=== PATIENT | female | born 1935 | race Caucasian/White ===

== ENCOUNTER → 2016-11-02 | Outpatient (CLI) | payer MEDICARE ==
--- NOTE | 2016-11-02 11:02 | RAD ---
Abdomen radiograph History: Constipation for one week, nausea. Comparison: None. Findings: AP view of the abdomen. A few small bowel loops are mildly dilated up to 4 cm in diameter. Moderate colonic stool is seen. Gas is seen in the rectum. Calcifications in the pelvis are favored to be phleboliths. Degenerative changes are seen in the spine. Impression: A few mildly dilated small bowel loops are seen. The findings could represent ileus or partial small bowel obstruction.
== END | disposition home or self-care (01) ==
LOC: DXRADRC 10:11
PROVIDERS: ATTEND Nurse Practitioner Family
DX: K59.00 Constipation, unspecified (principal); R11.0 Nausea
CPT/HCPCS: 74000

== ENCOUNTER 2016-11-04 14:55 | Emergency (ER) | payer MEDICARE ==
[2016-11-04 15:31] LABS: BASO % 0 % (0-3); EOS % 0 % (0-3); HEMOGLOBIN 15.3 g/dL (12.0-15.5); LYMPH # 2.4 x10^3/uL (1.0-4.8); LYMPH % 21 % (24-48); MEAN CORPUSCULAR HEMOGLOBIN 29 pg (25-35); MEAN CORPUSCULAR HGB CONC 33 g/dL (31-37); MEAN CORPUSCULAR VOLUME 86 fL (79-100); MONO # 1.2 x10^3/uL (0.0-1.1); MONO % 10 % (0-9); NEUT # 8.1 x10^3uL (1.8-7.7); NEUT % 69 % (31-73); PLATELET COUNT 332 x10^3/uL (140-400); RED BLOOD COUNT 5.32 x10^6/uL (3.50-5.40); RED CELL DISTRIBUTION WIDTH 14.5 % (11.5-14.5); WHITE BLOOD COUNT 11.7 x10^3/uL (4.0-11.0)
[2016-11-04 15:43] LABS: ALBUMIN 3.6 g/dL (3.4-5.0); ALBUMIN/GLOBULIN RATIO 0.9 (1.0-1.7); CALCIUM 9.4 mg/dL (8.5-10.1); CREATININE 0.9 mg/dL (0.6-1.0); GFR 60.4; POTASSIUM 4.1 mmol/L (3.5-5.1); TOTAL BILIRUBIN 0.6 mg/dL (0.2-1.0); TOTAL PROTEIN 7.5 g/dL (6.4-8.2)
[2016-11-04] MEDS ORDERED: IV NORMAL SALINE 500ML 500 ML IV ONE (15:45)
[2016-11-04] MEDS ORDERED: FENTANYL PF 100 MCG/2 ML VIAL. IV ONE ×2 (16:15→17:45)
[2016-11-04 16:36] LABS: BILIRUBIN,URINE NEG (NEG); CLARITY,URINE CLOUDY; COLOR,URINE YELLOW; GLUCOSE,URINE NEG (NEG)
[2016-11-04 16:37] LABS: BACTERIA,URINE FEW /HPF (0-FEW); NITRITE,URINE NEG (NEG); SQUAMOUS EPITHELIAL CELL,UR MOD /LPF; UROBILINOGEN,URINE 1 mg/dL (0.2 mg/dL)
[2016-11-04] MEDS ORDERED: IOHEXOL 300 MG/ML 75 ML VIAL. IV ONE (17:00)
--- NOTE | 2016-11-04 17:09 | RAD ---
CT of the abdomen and pelvis with contrast, 11/04/2016: History: Abdominal pain, vomiting Multidetector CT imaging was performed following an IV bolus injection of iodinated contrast material.. No oral contrast material was administered for this study. The gallbladder is surgically absent. There is an 18 mm ill-defined low-density lesion in the anterior aspect of the left lobe of the liver. This does not have the appearance of a cyst. No other hepatic mass is seen. The common hepatic duct is mildly dilated, probably secondary the postcholecystectomy state. No common bile duct calculus or pancreatic head mass is seen. There is an ill-defined low density mass involving the pancreatic tail. It measures approximately 5 cm in diameter. It extends to the splenic hilum with adjacent heterogeneous areas of decreased density in the spleen. The mass cannot be from the lateral wall of the body of the stomach. This mass is also contiguous with an area of focal mural thickening involving the splenic flexure of the colon. The colon is distended with fluid proximal to this level. Distal to this level the descending colon is decompressed containing only a small amount of gas and stool. There are scattered diverticula in the distal colon. In addition to fluid distention of the right colon, there were also distended distal small bowel loops due to this obstructive process. Several small right renal cysts are noted. There is a nonobstructing calcification in the mid right kidney. The adrenal glands are unremarkable. There is moderate aortoiliac calcific plaquing. No retroperitoneal, iliac or inguinal adenopathy is seen. A Trinidad catheter is present in the urinary bladder. There is only a trace amount of free fluid in the abdomen. No free air is identified in the abdomen. IMPRESSION: 1. Left upper quadrant mass apparently originating in the pancreatic tail invading the spleen, stomach and splenic flexure of the colon, with associated colonic obstruction. A colonic or gastric origin is much less likely. 2. Single small irregular hepatic lesion raising the possibility of metastatic disease. PQRS Compliance Statement: One or more of the following individualized dose reduction techniques were utilized for this examination: 1. Automated exposure control 2. Adjustment of the mA and/or kV according to patient size 3. Use of iterative reconstruction technique
--- NOTE | 2016-11-04 17:35 | ED.ADGEN ---
Past History Past Medical History: Hypertension, Hypothyroid Past Surgical History: Appendectomy, Cholecystectomy, , Tonsillectomy , Tubal ligation, Other Alcohol Use: None Drug Use: None Adult General Chief Complaint Chief Complaint abdominal pain, vomiting HPI HPI Patient is a 81 year old female who presents with abdominal pain and vomiting. She's been having intermittent symptoms for 1 week. No blood in vomit, one episode of bilious vomiting. She's had intermittent bloating of her abdomen, it improved and then again distends. No vomiting, she had a normal BM earlier today, limited flatus. No h/o obstruction reported in the past. Prior abdominal surgeries were cholecystectomy, , tubal ligation and hysterectomy. No fevers, no SOB, no chest pain. She reports concentrated urine , no dysuria, decreased frequency. Hanna Carvajal is PCP Review of Systems Review of Systems Constitutional: Denies fever or chills [] Eyes: Denies change in visual acuity, redness, or eye pain [] HENT: Denies nasal congestion or sore throat [] Respiratory: Denies cough or shortness of breath [] Cardiovascular: No additional information not addressed in HPI [] GI: per hpi : per hpi Musculoskeletal: Denies back pain or joint pain [] Integument: Denies rash or skin lesions [] Neurologic: Denies headache, focal weakness or sensory changes [] Current Medications Current Medications Current Medications Medications (Trade) Dose Ordered Sig/Mack Start Time Stop Time Status Last Admin Dose Admin Fentanyl Citrate (Fentanyl 2ml Vial) 25 mcg 1X ONCE 11/04/16 16:15 11/04/16 16:16 DC 11/04/16 16:13 25 MCG Iohexol (Omnipaque 300 Mg/ml) 75 ml 1X ONCE 11/04/16 17:00 11/04/16 17:01 DC 11/04/16 16:35 75 ML Sodium Chloride (Iv Sodium Chloride 0.9% 500ml) 500 ml @ 0 mls/hr 1X ONCE 11/04/16 15:45 11/04/16 15:46 DC 11/04/16 16:00 500 MLS/HR Allergies Allergies Allergies Coded Allergies Type Severity Reaction Last Updated Verified Jpekajm-Jfk-Uak Reductase Inhibitor Allergy Unknown 11/04/16 Yes Sulfa (Sulfonamide Antibiotics) Allergy Unknown 11/04/16 Yes albuterol Allergy Unknown 11/04/16 Yes alendronate sodium Allergy Unknown 11/04/16 Yes aspirin Allergy Unknown 11/04/16 Yes calcium Allergy Unknown 11/04/16 Yes celecoxib Allergy Unknown 11/04/16 Yes diltiazem Allergy Unknown 11/04/16 Yes estradiol Allergy Unknown 11/04/16 Yes estrogens, conjugated Allergy Unknown 11/04/16 Yes ether Allergy Unknown 11/04/16 Yes ezetimibe Allergy Unknown 11/04/16 Yes fluticasone Allergy Unknown 11/04/16 Yes furosemide Allergy Unknown 11/04/16 Yes hydrochlorothiazide Allergy Unknown 11/04/16 Yes ipratropium Allergy Unknown 11/04/16 Yes lidocaine Allergy Unknown 11/04/16 Yes naproxen Allergy Unknown 11/04/16 Yes niacin Allergy Unknown 11/04/16 Yes raloxifene Allergy Unknown 11/04/16 Yes salmeterol Allergy Unknown 11/04/16 Yes tiotropium Allergy Unknown 11/04/16 Yes tramadol Allergy Unknown 11/04/16 Yes trandolapril Allergy Unknown 11/04/16 Yes triamterene Allergy Unknown 11/04/16 Yes verapamil Allergy Unknown 11/04/16 Yes Physical Exam Physical Exam Constitutional: Well developed, well nourished, no acute distress, non-toxic appearance. [] HENT: Normocephalic, atraumatic, bilateral external ears normal, oropharynx moist, no oral exudates, nose normal. [] Eyes: PERRLA, EOMI, conjunctiva normal, no discharge. [] Neck: Normal range of motion, no tenderness, supple, no stridor. [] Cardiovascular:Heart rate regular with regular rhythm, no murmur [] Lungs & Thorax: Bilateral breath sounds clear to auscultation, no wheeze or crackles Abdomen: Bowel sounds hypoactive, firm more in lower abdomen with generalized distention, moderate tenderness, no guarding or peritoneal signs.[] Skin: Warm, dry, no erythema, no rash. [] Back: No tenderness, no CVA tenderness. [] Extremities: No tenderness, no cyanosis, no clubbing, ROM intact, no edema. [] Neurologic: Alert and oriented X 3, normal motor function, normal sensory function, no focal deficits noted. [] Psychologic: Affect normal, judgement normal, mood normal. [] Current Patient Data Vital Signs Vital Signs Date Time Temp Pulse Resp B/P Pulse Ox O2 Delivery O2 Flow Rate FiO2 11/04/16 16:13 18 11/04/16 15:00 98.2 90 99 Room Air Lab Results Laboratory Tests Test 11/04/16 15:14 11/04/16 15:43 White Blood Count 11.7x10^3/uL (4.0-11.0) H Red Blood Count 5.32x10^6/uL (3.50-5.40) Hemoglobin 15.3g/dL (12.0-15.5) Hematocrit 46.0% (36.0-47.0) Mean Corpuscular Volume 86fL (79-100) Mean Corpuscular Hemoglobin 29pg (25-35) Mean Corpuscular Hemoglobin Concent 33g/dL (31-37) Red Cell Distribution Width 14.5% (11.5-14.5) Platelet Count 332x10^3/uL (140-400) Neutrophils (%) (Auto) 69% (31-73) Lymphocytes (%) (Auto) 21% (24-48) L Monocytes (%) (Auto) 10% (0-9) H Eosinophils (%) (Auto) 0% (0-3) Basophils (%) (Auto) 0% (0-3) Neutrophils # (Auto) 8.1x10^3uL (1.8-7.7) H Lymphocytes # (Auto) 2.4x10^3/uL (1.0-4.8) Monocytes # (Auto) 1.2x10^3/uL (0.0-1.1) H Eosinophils # (Auto) 0.0x10^3/uL (0.0-0.7) Basophils # (Auto) 0.0x10^3/uL (0.0-0.2) Sodium Level 128mmol/L (136-145) L Potassium Level 4.1mmol/L (3.5-5.1) Chloride Level 89mmol/L (98-107) L Carbon Dioxide Level 28mmol/L (21-32) Anion Gap 11 (6-14) Blood Urea Nitrogen 18mg/dL (7-20) Creatinine 0.9mg/dL (0.6-1.0) Estimated GFR (Cockcroft-Gault) 60.4 BUN/Creatinine Ratio 20 (6-20) Glucose Level 118mg/dL (70-99) H Calcium Level 9.4mg/dL (8.5-10.1) Total Bilirubin 0.6mg/dL (0.2-1.0) Aspartate Amino Transferase (AST) 18U/L (15-37) Alanine Aminotransferase (ALT) 19U/L (14-59) Alkaline Phosphatase 108U/L (46-116) Troponin I Quantitative < 0.017ng/mL (0-0.055) Total Protein 7.5g/dL (6.4-8.2) Albumin 3.6g/dL (3.4-5.0) Albumin/Globulin Ratio 0.9 (1.0-1.7) L Urine Collection Type Unknown Urine Color Yellow Urine Clarity Cloudy Urine pH 6.5 Urine Specific [place] 1.015 Urine Protein Neg (NEG-TRACE) Urine Glucose (UA) Negmg/dL (NEG) Urine Ketones (Stick) 40mg/dL (NEG) Urine Blood Neg (NEG) Urine Nitrite Neg (NEG) Urine Bilirubin Neg (NEG) Urine Urobilinogen Dipstick 1mg/dL (0.2 mg/dL) Urine Leukocyte Esterase Neg (NEG) Urine RBC 1-2/HPF (0-2) Urine WBC 1-4/HPF (0-4) Urine Squamous Epithelial Cells Mod/LPF Urine Bacteria Few/HPF (0-FEW) EKG EKG 84 bpm, sinus, normal axis, normal intervals with the exception of QTC 464, no ST elevation or depression appreciated, nonischemic T waves, interpreted by me [ ] Radiology/Procedures Radiology/Procedures [] Course & Med Decision Making Course & Med Decision Making Pertinent Labs and Imaging studies reviewed. (See chart for details) pt given IV fluids, labs, urine sent. Pt had straight cath and only 200ml drained. Pt given 25mcg fentanyl IV. Labs show hyponatremia, no other significant abnormalities. CT findings discussed with Dr. Carmen, transitions manager rn, recommends transfer to [facility]. Pt agreeable, received 50mcg IV fentanyl. Accepted transfer by Dr. Lua, pt to be transferred via EMS. Final Impression Final Impression colon obstruction abdominal mass possible metastatic disease hyponatremia[] Problems: Dragon Disclaimer Dragon Disclaimer This electronic medical record was generated, in whole or in part, using a voice recognition dictation system. ROSARIO MARIEE MD Nov 04, 2016 17:35
[2016-11-04 19:02] VITALS: BP 125/87
--- NOTE | 2016-11-04 21:02 | EKG ---
[address] [address] Test Date: 2016-11-04 Test Time: 15:26:11 Pat Name: KARLEE HUMPHREY Department: Room: Gender: F Dedicated Local Truck Driver: VILLA : 1935 Requested By: ROSARIO MARIEE Order Number: [id number] Reading MD: Measurements Intervals Biddle Rate: 84 P: 15 MN: 166 QRS: -28 QRSD: 94 T: 38 QT: 390 QTc: 464 Interpretive Statements SINUS RHYTHM LEFTWARD AXIS R-S TRANSITION ZONE IN V LEADS DISPLACED TO THE LEFT QRS(T) CONTOUR ABNORMALITY CONSIDER ANTEROSEPTAL MYOCARDIAL DAMAGE POSSIBLY ABNORMAL ECG RI6.01 Unconfirmed report No previous ECG available for comparison
== END 2016-11-04 19:19 | disposition short-term general hospital (02) ==
LOC: ER 14:55
DX: K56.60 Unspecified intestinal obstruction (principal); R19.00 Intra-abdominal and pelvic swelling, mass and lump, unspecified site; E87.1 Hypo-osmolality and hyponatremia; E03.9 Hypothyroidism, unspecified; I10 Essential (primary) hypertension; Z88.2 Allergy status to sulfonamides; Z88.4 Allergy status to anesthetic agent; Z88.6 Allergy status to analgesic agent; Z88.1 Allergy status to other antibiotic agents; Z88.8 Allergy status to other drugs, medicaments and biological substances
CPT/HCPCS: 36415; 74177; 80053; 81001; 84484; 85027; 93005; 96361; 96374; 96376; 99285; J3010; J7040; Q9967

== ENCOUNTER 2016-11-20 09:55 | Inpatient (IN) | payer OTHER ==
[~2016-11-20] VITALS: Ht 148.6 cm; Wt 63.5 kg
[2016-11-20 10:14] VITALS: BP 148/69
[2016-11-20] MEDS ORDERED: MORPHINE SULFATE 10 MG/ML SYRINGE. IV PRN (10:45)
[2016-11-20] MEDS ORDERED: LORazepam 2 MG/ML VIAL IV PRN (10:45)
[2016-11-20] MEDS ORDERED: ONDANSETRON PF 4 MG/2 ML VIAL. IV PRN (10:45)
[2016-11-20] MEDS ORDERED: ACETAMINOPHEN 650 MG SUPP.RECT. PR PRN (10:45)
[2016-11-20] MEDS ORDERED: HYOSCYAMINE 0.125 MG TAB.RAPDIS PO PRN (10:45)
--- NOTE | 2016-11-20 11:00 | NUR ---
The patient, KARLEE HUMPHREY, 81 y/o, F admitted by CHINEDU MERCADO DO, was given written information regarding hospital policies, unit procedures and contact persons. Valuables were checked and hospice nurse was at the bedside soon after the patient arrived by EMS from [facility]. Patient's came to the bedside and stayed until lunch. Reviewed patient's orders with the hospice nurse. Patient is resting comfortably, will continue to monitor.
--- NOTE | 2016-11-20 12:22 | HP ---
ADMIT DATE: 11/20/2016 REASON FOR ADMISSION: 1.Metastatic pancreatic cancer. 2.Comfort measures. HISTORY OF PRESENT ILLNESS: This is a 81-year-old female, who had a recent diagnosis in early October of metastatic pancreatic cancer. She underwent abdominal surgery to relieve the obstruction that she had and was found to have metastasis to the liver as well. She has spent some time at specialty and has been getting , but has not been improving and it has been decided by herself and her family that she will be going on hospice. She was admitted to [facility] on the hospice service Vit. PAST MEDICAL HISTORY: Her other medical problems include anemia, type 2 diabetes, acute kidney injury, which has resolved; hypertension and asthma. SOCIAL HISTORY: No smoking or alcohol. Prior to her illness lived at home with her . She has one son. REVIEW OF SYSTEMS: The patient denied having any pain at the current time and was fairly comfortable. PHYSICAL EXAMINATION: VITAL SIGNS: Her blood pressure 148/69, respirations 32, pulse 99, pulse ox 94% on a Venturi mask at 15 liters flow rate. GENERAL: Color is pale. She is alert. She can respond to questions. Tongue is slightly dry. NECK: Supple. LUNGS: With crackles in the bases. Respirations are rapid. GENITOURINARY: Trinidad catheter was in place, draining clear yellow urine. PLAN: Admit to hospice for comfort care. CHINEDU MERCADO DO DR: BRIANNA/myrtle JOB#: [id number] / [id number]
[2016-11-20 15:50] VITALS: BP 148/69
[2016-11-20] MEDS: MORPHINE SULFATE 10 MG/ML SYRINGE. IV PRN ×2 (16:12→20:09)
[2016-11-20] MEDS: LORazepam 2 MG/ML VIAL IV PRN ×2 (18:14→22:22)
[2016-11-20 18:46] VITALS: BP 114/68
--- NOTE | 2016-11-20 22:32 | NUR ---
I was notified by floor RN that patient had . Independent assessment of pt.completed. No response to verbal or tactile stimuli noted, no gag reflex, no breath sounds, bilateral pupils not reactive to light, no chest movement or apical heart beat for over one minute. Pronouncement of completed per hospital protocol see paperwork for further details. Time of declared at 2242 on 11/20/16. See Report of paperwork for further details regarding [facility] notification, family notification, Disposition of body, and belongings of patient.
--- NOTE | 2016-11-21 00:31 | NUR ---
After confirmation of patient's at 2241, spoke with Dr. Mckeon at 2241 about patient's , per Dr. Mckeon, okay to release body. Spoke with [facility] at 2245 about patient's . Per [facility], pt not a candidate for transplant and it is okay to release. Next of Kin, Ike Seay (), notified at 0002 and approved release of body to [facility]. Telephone consent signed by this RN and Deb Galvez RN. home picked up patient at 0013 and signed report of paper. Patient has eyeglasses that Ike Seay has approved for nursing diversified crops supervisor to hold and acknowledged that he will come garbage pick up man glasses "sometime Tuesday."
--- NOTE | 2016-12-13 08:52 | DS ---
DATE OF DISCHARGE: 11/21/2016 SUMMARY BRIEF SUMMARY: This is a 81-year-old female who was admitted to hospice on 11/20/2016 with diagnosis of metastatic pancreatic cancer. Hospice measures were initiated and the patient was comfortable during her stay at [facility]. She continued to decline over the course of the day and on 11/21/2016 at 2242 the patient without incident and her body was released to the home. CHINEDU MERCADO DO DR: BRIANNA/myrtle JOB#: [id number] / [id number]
== END 2016-11-21 00:44 | disposition expired | DRG 435 ==
LOC: 1 SOUTH 09:55 → EEVIPCON 09:55
PROVIDERS: ADMIT Family Medicine; ATTEND Family Medicine
DX: C25.9 Malignant neoplasm of pancreas, unspecified (principal); J96.00 Acute respiratory failure, unspecified whether with hypoxia or hypercapnia; C78.7 Secondary malignant neoplasm of liver and intrahepatic bile duct; E11.9 Type 2 diabetes mellitus without complications; I10 Essential (primary) hypertension; J45.909 Unspecified asthma, uncomplicated; Z66 Do not resuscitate; Z51.5 Encounter for palliative care; Z85.07 Personal history of malignant neoplasm of pancreas; Z88.6 Allergy status to analgesic agent; Z88.2 Allergy status to sulfonamides; Z88.8 Allergy status to other drugs, medicaments and biological substances; D64.9 Anemia, unspecified
CPT/HCPCS: J2060; J2270; Q5005